=== PATIENT | female | born 1985 | race Hispanic/Latino ===

== ENCOUNTER 2022-02-15 08:20 | Emergency (ER) | payer OTHER ==
[~2022-02-15] VITALS: Ht 157.5 cm; Wt 77.1 kg
[2022-02-15 09:14] LABS: BASOPHILS % (AUTO) 0.4 % (0.0-5.0); EOSINOPHILS % (AUTO) 1.8 % (0.0-8.0); HEMATOCRIT 21.2 % (36-48); MEAN CORPUSCULAR HEMOGLOBIN 20.1 pg (27.0-33.0); MEAN CORPUSCULAR HGB CONC 29.7 g/dL (32.0-36.0); MEAN CORPUSCULAR VOLUME 67.7 fL (79-99); MONOCYTES % (AUTO) 7.1 % (3.0-13.0); NEUTROPHILS % (AUTO) 48.5 % (40.0-77.0); PLATELET COUNT (AUTO) 256 K/uL (130-400); RED BLOOD CELL COUNT(AUTO) 3.13 MIL/uL (4.00-5.50); RED CELL DISTRIBUTION WIDTH 20.3 % (11.0-15.5); WHITE BLOOD COUNT (AUTO) 5.6 K/uL (4.8-10.8)
[2022-02-15 09:17] LABS: APPEARANCE,URINE CLEAR (CLEAR); BILIRUBIN,URINE NEGATIVE (NEGATIVE); COLOR,URINE YELLOW (YELLOW); GLUCOSE, URINE (UA) NEGATIVE (NEGATIVE); KETONES,URINE NEGATIVE (NEGATIVE); LEUKOCYTE ESTERASE ,URINE NEGATIVE (NEGATIVE); NITRATE,URINE NEGATIVE (NEGATIVE); OCCULT BLOOD,URINE LARGE (NEGATIVE); PH,URINE 6.5 (5.0-8.0); PROTEIN,URINE NEGATIVE (NEGATIVE); UROBILINOGEN,URINE 0.2 mg/dL (0.2-1.0)
[2022-02-15 09:51] LABS: ALBUMIN 3.3 g/dL (3.5-5.0); BACTERIA,URINE Rare /HPF (None Seen); CREATININE 0.8 mg/dL (0.5-1.5); POTASSIUM 3.8 mmol/L (3.5-5.1); SQUAMOUS EPITHELIAL CELL,UR Rare /HPF (0-2); TOTAL PROTEIN, SERUM 7.4 g/dL (6.0-8.3); WBC,URINE 0-1 /HPF (0-1)
[2022-02-15 09:53] LABS: HCG,QUALITATIVE URINE NEGATIVE (NEGATIVE)
[2022-02-15 15:57] VITALS: BP 138/88
[2022-02-15] MEDS ORDERED: FERR1TAB65 PO (16:43)
== END 2022-02-15 16:47 | disposition home or self-care (01) ==
LOC: EDH 08:20
DX: N92.1 Excessive and frequent menstruation with irregular cycle (principal); D62 Acute posthemorrhagic anemia
CPT/HCPCS: 99285; 36430; 80053; 85025; 86850; 86900; 86901; 86923; 81001; 81025; 36415; P9016